=== PATIENT | male | born 1980 | race Caucasian/White ===

== ENCOUNTER 2024-11-19 00:53 | Emergency (ER) | payer OTHER ==
[~2024-11-19] VITALS: Ht 175.3 cm; Wt 107.7 kg
[2024-11-19 02:07] LABS: BASO # 0.0 10^3/uL (0.0-0.2); BASO % 0.2 % (0.0-1.0); EOS # 0.1 10^3/uL (0.0-0.5); EOS % 0.4 % (0.0-3.0); LYMPH # 1.1 10^3/uL (1.5-5.0); LYMPH % 8.5 % (24.0-44.0); MONO # 0.5 10^3/uL (0.0-0.8); MONO % 3.7 % (2.0-8.0); NEUTROPHILS # 11.4 10^3/uL (1.5-8.5); NEUTROPHILS % 86.7 % (36.0-66.0); PLATELET COUNT, AUTOMATED 177 10^3/uL (150-450)
[2024-11-19 02:26] LABS: ALT/SGPT 21.0 U/L (7.0-40); AST/SGOT 20.0 U/L (<34); CALCIUM LEVEL 9.2 MG/DL (8.5-10.1); CARBON DIOXIDE LEVEL 28.0 MMOL/L (20-31); CHLORIDE LEVEL 107.0 MMOL/L (98-107); CK-MB VALUE MASS 1.3 NG/ML (<3.6); CPK CREATINE PHOSPHOKINASE 71.0 U/L (46-171); CREATININE FOR GFR 1.3 MG/DL (0.70-1.30); GLOMERULAR FILTRATION RATE 70.3 (>60); MB/CK RELATIVE INDEX 1.83 (< OR =4); POTASSIUM SERUM 3.9 MMOL/L (3.5-5.1); SODIUM LEVEL 143.0 MMOL/L (136-145)
[2024-11-19 07:15] VITALS: BP 123/75; O2SAT 98
[2024-11-19 07:31] VITALS: TEMP 97.5
== END 2024-11-19 07:32 | disposition home or self-care (01) ==
LOC: M ED 00:53 → EDBD 00:53 → M ED 07:32
DX: R55 Syncope and collapse (principal); R19.7 Diarrhea, unspecified; I10 Essential (primary) hypertension; E78.5 Hyperlipidemia, unspecified; F41.9 Anxiety disorder, unspecified; Z88.0 Allergy status to penicillin